=== PATIENT | male | born 1975 | race Two or more races ===

== ENCOUNTER 2022-06-10 01:18 | Inpatient (IN) | payer OTHER ==
[~2022-06-10] VITALS: Ht 177.8 cm; Wt 121.3 kg
[2022-06-10] MEDS ORDERED: FAMOTIDINE (10MG/ML) 2ML VL IV ONE (02:15)
[2022-06-10] MEDS ORDERED: DexAMETHasone SOD PHOS 10MG/1ML VIAL INJ IV ONE (02:15)
[2022-06-10 03:00] LABS: Basophils # (auto) 0 10 ^3/uL (0-0.2); Basophils % (auto) 0.3 % (0.0-2.0); Eosinophils # (auto) 0 10 ^3/uL (0-0.8); Hematocrit 47.2 % (41.0-53.0); Hemoglobin 15.9 g/dL (13.5-17.5); Lymphocytes # (auto) 0.3 10 ^3/uL (0.4-5.4); Lymphocytes % (auto) 2.3 % (10.0-50.0); Mean Corpuscular Hemoglobin 30.8 pg (28.0-32.0); Mean Corpuscular Hgb Conc. 33.6 g/dL (32.0-36.0); Mean Corpuscular Volume 91.6 fL (80.0-100.0); Monocytes # (auto) 0.7 10 ^3/uL (0-1.3); Monocytes % (auto) 4.8 % (0.0-12.0); Neutrophils # (auto) 13.6 10 ^3/uL (1.6-8.6); Neutrophils % (auto) 92.6 % (37.0-80.0); Red Blood Cells 5.15 10^6/uL (4.5-5.90); Red Cell Distribution Width 12.9 % (11.8-14.3); White Blood Cell 14.6 10^3/uL (4.4-10.8)
[2022-06-10] MEDS ORDERED: ONDANSETRON HCL 4 MG/2 ML VIAL IV ONE (03:00)
[2022-06-10] MEDS ORDERED: cefTRIAXone 1GM/50ML D5W 50 ML IV ONE (03:00)
[2022-06-10] MEDS ORDERED: SODIUM CHLORIDE 0.9% 4,100 ML IV ONE (03:00)
[2022-06-10 03:18] LABS: Albumin 3.3 g/dL (3.4-5.0); BUN/Creatinine Ratio 8.9; Calcium 8.8 mg/dL (8.5-10.1); Potassium 4.3 mmol/L (3.5-5.1)
[2022-06-10 03:21] LABS: Bilirubin, Total 1.8 mg/dL (0.2-1.0); Total Protein 6.6 g/dL (6.4-8.2)
[2022-06-10] MEDS ORDERED: SODIUM CHLORIDE 0.9% 1,000 ML IV ONE ×2 (04:00→17:45)
[2022-06-10] MEDS ORDERED: InsuLIN REG 1unit/0.01ml Soln (100units/ml) IV ONE ×3 (04:00→17:45)
[2022-06-10] MEDS ORDERED: KETOROLAC TROMETH 30 MG/ML 1ML VIAL IV ONE (05:45)
[2022-06-10 08:29] LABS: BUN/Creatinine Ratio 11.2; Potassium 3.8 mmol/L (3.5-5.1)
[2022-06-10] MEDS ORDERED: VANCOMYCIN PER PHARMACY 0 MG IV SCH (09:30)
[2022-06-10] MEDS ORDERED: ONDANSETRON HCL 4 MG/2 ML VIAL IV PRN (09:30)
[2022-06-10] MEDS ORDERED: DEXTROSE (50%) 50ML SYRG IV PRN (09:30)
[2022-06-10] MEDS ORDERED: DOCUSATE SOD 100 MG CAP PO PRN (09:30)
[2022-06-10] MEDS ORDERED: LACTATED RINGER'S 1,000 ML IV ONE ×2 (09:45)
[2022-06-10] MEDS: metroNIDAZOLE 500MG/100ML 100 ML IV SCH ×2 (10:25→17:58)
[2022-06-10] MEDS: PANTOPRAZOLE 40 MG TAB PO SCH (10:26)
[2022-06-10] MEDS: HEPARIN SODIUM (PORCINE) 5000 UNITS/ML 1ML VIAL SC SCH ×2 (10:26→18:50)
[2022-06-10] MEDS: HYDROmorphone HCL 2 MG/ML VL/or syr IV PRN (10:28)
[2022-06-10] MEDS: CLOTRIMAZOLE 1 % CREAM 15GM TOP SCH ×2 (10:28→22:00)
[2022-06-10] MEDS ORDERED: VANCOMYCIN 1GM/250ML 250 ML IV ONE (10:30)
[2022-06-10 10:46] LABS: Lactic Acid w/Reflex 2.2 mmol/L (0.4-2.0)
[2022-06-10 11:17] LABS: Creatinine, Urine 120 mg/dL (30.0-125.0); Sodium Urine 8 mmol/L (40-220)
[2022-06-10] MEDS: ACCU-CHEK COMFORT CURVE STRIP VI SCH ×3 (11:30→22:00)
[2022-06-10] MEDS: InsuLIN REG 1unit/0.01ml Soln (100units/ml) SC SCH ×3 (11:30→21:44)
[2022-06-10 12:03] LABS: Bilirubin, Direct 0.5 mg/dL (0-0.2); Bilirubin, Total 1.2 mg/dL (0.2-1.0)
[2022-06-10 12:39] LABS: Urine Bacteria MOD /hpf (None Seen); Urine Blood Negative /uL (Negative); Urine Hyaline Cast FEW /lpf (0 - 2); Urine Mucus FEW (None Seen); Urine Specific Gravity 1.032 (1.001-1.035); Urine WBC 7 /hpf (0 - 3)
[2022-06-10] MEDS: CEFEPIME 2 GM in SODIUM CHL 0.9% 50 ML IV SCH ×2 (14:59→21:41)
[2022-06-10] MEDS: HYDROcodone-ACET 5/325MG TAB PO PRN ×2 (16:21→21:40)
[2022-06-10] MEDS ORDERED: HEPARIN SODIUM (PORCINE) 5000 UNITS/ML 1ML VIAL ONE (18:47)
[2022-06-10] MEDS ORDERED: FELO5TAB6 GT (19:38)
[2022-06-10] MEDS ORDERED: OLME20TA53 PO (19:38)
[2022-06-10] MEDS: SODIUM CHLORIDE 0.9% 1,000 ML IV SCH (20:48)
[2022-06-10 21:29] VITALS: BP 135/80
[2022-06-11] MEDS: VANCOMYCIN 1GM/250ML 250 ML IV SCH ×2 (01:24→17:02)
[2022-06-11] MEDS: HEPARIN SODIUM (PORCINE) 5000 UNITS/ML 1ML VIAL SC SCH ×3 (01:25→18:35)
[2022-06-11] MEDS: HYDROcodone-ACET 5/325MG TAB PO PRN ×2 (02:42→06:33)
[2022-06-11] MEDS: metroNIDAZOLE 500MG/100ML 100 ML IV SCH ×3 (02:42→18:20)
[2022-06-11 04:35] VITALS: BP 118/77
[2022-06-11] MEDS: SODIUM CHLORIDE 0.9% 1,000 ML IV SCH (06:19)
[2022-06-11] MEDS: InsuLIN REG 1unit/0.01ml Soln (100units/ml) SC SCH ×4 (06:22→21:44)
[2022-06-11] MEDS: ACCU-CHEK COMFORT CURVE STRIP VI SCH ×4 (06:25→21:45)
[2022-06-11 09:05] VITALS: BP 156/83
[2022-06-11] MEDS: PANTOPRAZOLE 40 MG TAB PO SCH (09:15)
[2022-06-11] MEDS: CEFEPIME 2 GM in SODIUM CHL 0.9% 50 ML IV SCH ×2 (09:16→21:40)
[2022-06-11] MEDS: CLOTRIMAZOLE 1 % CREAM 15GM TOP SCH ×2 (10:00→21:40)
[2022-06-11] MEDS: HYDROmorphone HCL 2 MG/ML VL/or syr IV PRN ×2 (11:13→16:00)
[2022-06-11 13:00] VITALS: BP 129/78
[2022-06-11 16:10] LABS: Anion Gap 12 (5-15); BUN/Creatinine Ratio 21.3; Blood Urea Nitrogen 23 mg/dL (7-18); Calcium 7.9 mg/dL (8.5-10.1); Carbon Dioxide 20 mmol/L (21-32); Chloride 103 mmol/L (98-107); GFR African American 96 mL/min; GFR Non-African American 79 mL/min; Glucose 249 mg/dL (74-106); Sodium 135 mmol/L (136-145)
[2022-06-11] MEDS ORDERED: IBUPROFEN 800 MG TAB PO ONE (16:30)
[2022-06-11 16:37] VITALS: BP 158/87
[2022-06-11] MEDS: INSULIN LANTUS (GLARGINE) 1 /0.01ml (100units/ml) SC SCH (21:45)
[2022-06-11 22:00] VITALS: BP 136/58
[2022-06-12] MEDS: metroNIDAZOLE 500MG/100ML 100 ML IV SCH ×3 (01:44→17:51)
[2022-06-12] MEDS: HEPARIN SODIUM (PORCINE) 5000 UNITS/ML 1ML VIAL SC SCH ×3 (01:45→17:52)
[2022-06-12] MEDS: HYDROcodone-ACET 10/325MG TAB PO PRN ×4 (02:05→19:49)
[2022-06-12 05:14] VITALS: BP 141/72
[2022-06-12] MEDS: InsuLIN REG 1unit/0.01ml Soln (100units/ml) SC SCH ×4 (06:16→21:31)
[2022-06-12] MEDS: ACCU-CHEK COMFORT CURVE STRIP VI SCH ×4 (06:16→21:31)
[2022-06-12 07:34] LABS: Hematocrit 38.1 % (41.0-53.0); Hemoglobin 12.8 g/dL (13.5-17.5); Mean Corpuscular Hemoglobin 30.5 pg (28.0-32.0); Mean Corpuscular Hgb Conc. 33.5 g/dL (32.0-36.0); Red Blood Cells 4.19 10^6/uL (4.5-5.90); Red Cell Distribution Width 12.7 % (11.8-14.3)
[2022-06-12 07:49] LABS: BUN/Creatinine Ratio 19.1; Calcium 8.1 mg/dL (8.5-10.1); Magnesium 2.3 mg/dL (1.6-2.6); Potassium 3.8 mmol/L (3.5-5.1)
[2022-06-12 08:23] LABS: Basophils % (manual) 0 (0.0-2.0); Blast Cells 0; Metamyelocytes % 0; Myelocytes % 0; Promyelocytes % 0; Reactive Lymphocytes 0
[2022-06-12 08:44] LABS: Band Neutrophils % (manual) 2; Eosinophils % (manual) 1 (0-7); Lymphocytes % (manual) 15 (10.0-50.0); Monocytes % (manual) 1 (0-12)
[2022-06-12 09:14] VITALS: BP 145/83
[2022-06-12] MEDS: PANTOPRAZOLE 40 MG TAB PO SCH (09:35)
[2022-06-12] MEDS: amLODIPine BESYLATE 5 MG TAB PO SCH (09:35)
[2022-06-12] MEDS: LOSARTAN POTASSIUM 50 MG TAB PO SCH (09:36)
[2022-06-12] MEDS ORDERED: FELODIPINE 5 MG PO SCH (10:00)
[2022-06-12] MEDS: CEFEPIME 2 GM in SODIUM CHL 0.9% 50 ML IV SCH ×2 (12:00→20:58)
[2022-06-12] MEDS: VANCOMYCIN 1GM/250ML 250 ML IV SCH ×2 (12:38→19:50)
[2022-06-12 12:39] VITALS: BP 143/84
[2022-06-12] MEDS: CLOTRIMAZOLE 1 % CREAM 15GM TOP SCH ×2 (12:48→21:30)
[2022-06-12 16:49] VITALS: BP 142/83
[2022-06-12] MEDS: HYDROmorphone HCL 2 MG/ML VL/or syr IV PRN ×2 (17:22→23:03)
[2022-06-12] MEDS: SENNA 8.6 MG TAB PO PRN (19:49)
[2022-06-12] MEDS: INSULIN LANTUS (GLARGINE) 1 /0.01ml (100units/ml) SC SCH (21:30)
[2022-06-12 22:00] VITALS: BP 161/80
[2022-06-13] MEDS: metroNIDAZOLE 500MG/100ML 100 ML IV SCH ×2 (01:17→09:15)
[2022-06-13] MEDS: HYDROcodone-ACET 10/325MG TAB PO PRN ×3 (01:18→22:31)
[2022-06-13] MEDS: HEPARIN SODIUM (PORCINE) 5000 UNITS/ML 1ML VIAL SC SCH ×3 (01:19→17:54)
[2022-06-13] MEDS: VANCOMYCIN 1GM/250ML 250 ML IV SCH ×3 (02:55→18:54)
[2022-06-13] MEDS: CEFEPIME 2 GM in SODIUM CHL 0.9% 50 ML IV SCH ×2 (04:12→12:58)
[2022-06-13] MEDS: HYDROmorphone HCL 2 MG/ML VL/or syr IV PRN ×3 (04:21→20:17)
[2022-06-13 05:00] VITALS: BP 151/76
[2022-06-13] MEDS: ACCU-CHEK COMFORT CURVE STRIP VI SCH ×4 (06:36→22:25)
[2022-06-13] MEDS: InsuLIN REG 1unit/0.01ml Soln (100units/ml) SC SCH ×4 (06:38→22:30)
[2022-06-13 08:37] VITALS: BP 135/82
[2022-06-13] MEDS: LOSARTAN POTASSIUM 50 MG TAB PO SCH (09:16)
[2022-06-13] MEDS: PANTOPRAZOLE 40 MG TAB PO SCH (09:16)
[2022-06-13] MEDS: amLODIPine BESYLATE 5 MG TAB PO SCH (09:17)
[2022-06-13] MEDS: CLOTRIMAZOLE 1 % CREAM 15GM TOP SCH ×2 (11:39→22:22)
[2022-06-13 13:00] VITALS: BP 135/85
[2022-06-13] MEDS ORDERED: IOHEXOL 300 MG/ML 100ML BOTTLE IJ ONE (16:23)
[2022-06-13 16:58] VITALS: BP 139/75
[2022-06-13] MEDS ORDERED: IOHEXOL 350 MG/ML 100ML IJ ONE (21:54)
[2022-06-13 22:00] VITALS: BP 153/90
[2022-06-13] MEDS: INSULIN LANTUS (GLARGINE) 1 /0.01ml (100units/ml) SC SCH (22:30)
[2022-06-14] MEDS: HEPARIN SODIUM (PORCINE) 5000 UNITS/ML 1ML VIAL SC SCH ×3 (01:27→17:03)
[2022-06-14] MEDS: VANCOMYCIN 1GM/250ML 250 ML IV SCH ×3 (02:29→19:18)
[2022-06-14] MEDS: HYDROcodone-ACET 10/325MG TAB PO PRN ×2 (02:41→14:49)
[2022-06-14 05:00] VITALS: BP 138/73
[2022-06-14] MEDS: ACCU-CHEK COMFORT CURVE STRIP VI SCH ×4 (06:28→22:06)
[2022-06-14] MEDS: HYDROmorphone HCL 2 MG/ML VL/or syr IV PRN ×3 (06:29→19:30)
[2022-06-14] MEDS: InsuLIN REG 1unit/0.01ml Soln (100units/ml) SC SCH ×4 (06:30→22:08)
[2022-06-14 09:00] VITALS: BP 145/79
[2022-06-14] MEDS: PANTOPRAZOLE 40 MG TAB PO SCH (09:28)
[2022-06-14] MEDS: LOSARTAN POTASSIUM 50 MG TAB PO SCH (09:29)
[2022-06-14] MEDS: amLODIPine BESYLATE 5 MG TAB PO SCH (09:29)
[2022-06-14] MEDS: CLOTRIMAZOLE 1 % CREAM 15GM TOP SCH ×2 (09:33→22:06)
[2022-06-14 13:00] VITALS: BP 137/73
[2022-06-14 16:36] VITALS: BP 146/87
[2022-06-14] MEDS: DOCUSATE SOD 100 MG CAP PO PRN (19:31)
[2022-06-14] MEDS: SENNA 8.6 MG TAB PO PRN (19:31)
[2022-06-14 22:05] VITALS: BP 142/74
[2022-06-14] MEDS: INSULIN LANTUS (GLARGINE) 1 /0.01ml (100units/ml) SC SCH (22:09)
[2022-06-15] MEDS: HEPARIN SODIUM (PORCINE) 5000 UNITS/ML 1ML VIAL SC SCH ×3 (00:31→17:36)
[2022-06-15] MEDS: HYDROmorphone HCL 2 MG/ML VL/or syr IV PRN ×5 (00:42→22:36)
[2022-06-15] MEDS: VANCOMYCIN 1GM/250ML 250 ML IV SCH ×3 (03:14→18:19)
[2022-06-15 05:02] VITALS: BP 145/81
[2022-06-15 05:58] LABS: Hematocrit 39.2 % (41.0-53.0); Red Blood Cells 4.31 10^6/uL (4.5-5.90); White Blood Cell 15.4 10^3/uL (4.4-10.8)
[2022-06-15 05:59] LABS: Mean Corpuscular Hemoglobin 30.1 pg (28.0-32.0); Mean Corpuscular Volume 91.1 fL (80.0-100.0); Red Cell Distribution Width 13.1 % (11.8-14.3)
[2022-06-15 06:06] LABS: BUN/Creatinine Ratio 15.9; Calcium 8.1 mg/dL (8.5-10.1); Magnesium 2.4 mg/dL (1.6-2.6); Potassium 3.5 mmol/L (3.5-5.1)
[2022-06-15] MEDS: ACCU-CHEK COMFORT CURVE STRIP VI SCH ×4 (06:22→21:36)
[2022-06-15] MEDS: InsuLIN REG 1unit/0.01ml Soln (100units/ml) SC SCH ×4 (06:30→21:37)
[2022-06-15 08:58] LABS: Basophils % (auto) 0.3 % (0.0-2.0); Eosinophils % (auto) 0.8 % (0.0-7.0); Lymphocytes % (auto) 12.3 % (10.0-50.0); Neutrophils % (auto) 81.6 % (37.0-80.0)
[2022-06-15 08:59] LABS: Basophils # (auto) 0.1 10 ^3/uL (0-0.2); Eosinophils # (auto) 0.1 10 ^3/uL (0-0.8); Lymphocytes # (auto) 1.9 10 ^3/uL (0.4-5.4); Monocytes # (auto) 0.8 10 ^3/uL (0-1.3); Neutrophils # (auto) 12.5 10 ^3/uL (1.6-8.6)
[2022-06-15 09:11] VITALS: BP 139/83
[2022-06-15] MEDS: LOSARTAN POTASSIUM 50 MG TAB PO SCH (09:15)
[2022-06-15] MEDS: PANTOPRAZOLE 40 MG TAB PO SCH (09:16)
[2022-06-15] MEDS: amLODIPine BESYLATE 5 MG TAB PO SCH (09:16)
[2022-06-15] MEDS: DOCUSATE SOD 100 MG CAP PO PRN (09:16)
[2022-06-15] MEDS: CLOTRIMAZOLE 1 % CREAM 15GM TOP SCH ×2 (09:16→21:36)
[2022-06-15 13:29] VITALS: BP 146/76
[2022-06-15 16:26] VITALS: BP 137/92
[2022-06-15] MEDS: HYDROcodone-ACET 10/325MG TAB PO PRN (20:10)
[2022-06-15] MEDS: INSULIN LANTUS (GLARGINE) 1 /0.01ml (100units/ml) SC SCH (21:37)
[2022-06-15 22:22] VITALS: BP 153/78
[2022-06-16] MEDS: HYDROcodone-ACET 10/325MG TAB PO PRN ×2 (01:03→20:10)
[2022-06-16] MEDS: HEPARIN SODIUM (PORCINE) 5000 UNITS/ML 1ML VIAL SC SCH ×3 (01:07→17:44)
[2022-06-16] MEDS: VANCOMYCIN 1GM/250ML 250 ML IV SCH ×3 (01:41→17:45)
[2022-06-16] MEDS: HYDROmorphone HCL 2 MG/ML VL/or syr IV PRN ×3 (04:07→15:09)
[2022-06-16 05:06] VITALS: BP 142/81
[2022-06-16] MEDS: ACCU-CHEK COMFORT CURVE STRIP VI SCH ×4 (06:37→22:03)
[2022-06-16] MEDS: InsuLIN REG 1unit/0.01ml Soln (100units/ml) SC SCH ×4 (06:38→22:04)
[2022-06-16] MEDS ORDERED: IOHEXOL 300 MG/ML 100ML BOTTLE IJ ONE (08:06)
[2022-06-16 09:00] VITALS: BP 136/75
[2022-06-16] MEDS: amLODIPine BESYLATE 5 MG TAB PO SCH (09:25)
[2022-06-16] MEDS: CLOTRIMAZOLE 1 % CREAM 15GM TOP SCH ×2 (09:25→22:13)
[2022-06-16] MEDS: PANTOPRAZOLE 40 MG TAB PO SCH (09:25)
[2022-06-16] MEDS: DOCUSATE SOD 100 MG CAP PO PRN (09:38)
[2022-06-16] MEDS: LOSARTAN POTASSIUM 50 MG TAB PO SCH (11:04)
[2022-06-16 13:00] VITALS: BP 156/89
[2022-06-16 16:34] VITALS: BP 155/80
[2022-06-16 22:00] VITALS: BP 149/81
[2022-06-16] MEDS: INSULIN LANTUS (GLARGINE) 1 /0.01ml (100units/ml) SC SCH (22:04)
[2022-06-17] MEDS: HYDROcodone-ACET 10/325MG TAB PO PRN ×4 (01:37→23:54)
[2022-06-17] MEDS: HEPARIN SODIUM (PORCINE) 5000 UNITS/ML 1ML VIAL SC SCH ×3 (01:59→17:30)
[2022-06-17] MEDS: VANCOMYCIN 1GM/250ML 250 ML IV SCH ×3 (02:00→21:12)
[2022-06-17 05:00] VITALS: BP 158/92
[2022-06-17 05:05] LABS: Basophils # (auto) 0.1 10 ^3/uL (0-0.2); Eosinophils # (auto) 0.1 10 ^3/uL (0-0.8); Neutrophils # (auto) 12.9 10 ^3/uL (1.6-8.6)
[2022-06-17 05:07] LABS: Basophils % (auto) 0.3 % (0.0-2.0); Eosinophils % (auto) 0.5 % (0.0-7.0); Hemoglobin 13.5 g/dL (13.5-17.5); Lymphocytes # (auto) 2.2 10 ^3/uL (0.4-5.4); Lymphocytes % (auto) 13.8 % (10.0-50.0); Mean Corpuscular Hemoglobin 29.9 pg (28.0-32.0); Mean Corpuscular Volume 90.8 fL (80.0-100.0); Monocytes # (auto) 0.8 10 ^3/uL (0-1.3); Monocytes % (auto) 5.1 % (0.0-12.0); Neutrophils % (auto) 80.3 % (37.0-80.0); Red Blood Cells 4.52 10^6/uL (4.5-5.90); White Blood Cell 16.1 10^3/uL (4.4-10.8)
[2022-06-17] MEDS: ACCU-CHEK COMFORT CURVE STRIP VI SCH ×4 (06:48→22:26)
[2022-06-17] MEDS: InsuLIN REG 1unit/0.01ml Soln (100units/ml) SC SCH ×4 (06:49→22:28)
[2022-06-17 08:58] VITALS: BP 147/80
[2022-06-17] MEDS: LOSARTAN POTASSIUM 50 MG TAB PO SCH (09:28)
[2022-06-17] MEDS: amLODIPine BESYLATE 5 MG TAB PO SCH (09:29)
[2022-06-17] MEDS: PANTOPRAZOLE 40 MG TAB PO SCH (09:29)
[2022-06-17] MEDS: CLOTRIMAZOLE 1 % CREAM 15GM TOP SCH ×2 (10:00→22:26)
[2022-06-17] MEDS ORDERED: LACTULOSE 20Gm/30ML SOLN PO PRN (11:00)
[2022-06-17] MEDS ORDERED: INSULIN LANTUS (GLARGINE) 1 /0.01ml (100units/ml) SC SCH (11:00)
[2022-06-17 13:00] VITALS: BP 150/90
[2022-06-17] MEDS: AMPICILLIN & SULBACTAM SODIUM 3 GM in SODIUM CHL 0.9% 100 ML IV SCH ×3 (14:17→22:28)
[2022-06-17 22:00] VITALS: BP 147/79
[2022-06-17] MEDS: INSULIN LANTUS (GLARGINE) 1 /0.01ml (100units/ml) SC SCH (22:27)
[2022-06-18] MEDS: HEPARIN SODIUM (PORCINE) 5000 UNITS/ML 1ML VIAL SC SCH ×3 (01:21→17:46)
[2022-06-18] MEDS: AMPICILLIN & SULBACTAM SODIUM 3 GM in SODIUM CHL 0.9% 100 ML IV SCH ×4 (04:05→22:50)
[2022-06-18 05:00] VITALS: BP 149/82
[2022-06-18] MEDS: VANCOMYCIN 1GM/250ML 250 ML IV SCH ×3 (05:12→21:07)
[2022-06-18 06:10] LABS: Eosinophils # (auto) 0.1 10 ^3/uL (0-0.8); Eosinophils % (auto) 0.5 % (0.0-7.0); Hemoglobin 13.5 g/dL (13.5-17.5)
[2022-06-18 06:12] LABS: Basophils # (auto) 0.2 10 ^3/uL (0-0.2); Hematocrit 40.2 % (41.0-53.0); Lymphocytes % (auto) 12.1 % (10.0-50.0); Mean Corpuscular Hemoglobin 31.1 pg (28.0-32.0); Mean Corpuscular Hgb Conc. 33.7 g/dL (32.0-36.0); Mean Corpuscular Volume 92.1 fL (80.0-100.0); Monocytes # (auto) 0.9 10 ^3/uL (0-1.3); Monocytes % (auto) 5.7 % (0.0-12.0); Neutrophils # (auto) 13.3 10 ^3/uL (1.6-8.6); Neutrophils % (auto) 80.7 % (37.0-80.0); Red Blood Cells 4.36 10^6/uL (4.5-5.90); Red Cell Distribution Width 12.9 % (11.8-14.3); White Blood Cell 16.5 10^3/uL (4.4-10.8)
[2022-06-18 06:24] LABS: Calcium 8.6 mg/dL (8.5-10.1)
[2022-06-18 06:26] LABS: BUN/Creatinine Ratio 9.2
[2022-06-18] MEDS: ACCU-CHEK COMFORT CURVE STRIP VI SCH ×3 (06:45→21:48)
[2022-06-18] MEDS: InsuLIN REG 1unit/0.01ml Soln (100units/ml) SC SCH ×3 (06:48→21:50)
[2022-06-18] MEDS: HYDROcodone-ACET 10/325MG TAB PO PRN ×2 (06:58→11:36)
[2022-06-18 09:19] VITALS: BP 154/92
[2022-06-18] MEDS: amLODIPine BESYLATE 5 MG TAB PO SCH (10:01)
[2022-06-18] MEDS: LOSARTAN POTASSIUM 50 MG TAB PO SCH (10:08)
[2022-06-18] MEDS: CLOTRIMAZOLE 1 % CREAM 15GM TOP SCH ×2 (10:09→21:47)
[2022-06-18] MEDS: PANTOPRAZOLE 40 MG TAB PO SCH (10:13)
[2022-06-18] MEDS ORDERED: DEXTROSE (50%) 50ML SYRG IV PRN (11:45)
[2022-06-18] MEDS ORDERED: InsuLIN REG 1unit/0.01ml Soln (100units/ml) SC ONE (12:00)
[2022-06-18 13:07] VITALS: BP 149/81
[2022-06-18 16:49] VITALS: BP 139/78
[2022-06-18] MEDS: HYDROmorphone HCL 2 MG/ML VL/or syr IV PRN (20:22)
[2022-06-18] MEDS: INSULIN LANTUS (GLARGINE) 1 /0.01ml (100units/ml) SC SCH (21:50)
[2022-06-18 22:00] VITALS: BP 140/71
[2022-06-19] MEDS: HYDROcodone-ACET 10/325MG TAB PO PRN ×3 (00:22→21:30)
[2022-06-19] MEDS: HEPARIN SODIUM (PORCINE) 5000 UNITS/ML 1ML VIAL SC SCH ×3 (01:39→17:49)
[2022-06-19] MEDS: AMPICILLIN & SULBACTAM SODIUM 3 GM in SODIUM CHL 0.9% 100 ML IV SCH ×4 (04:12→22:28)
[2022-06-19 05:00] VITALS: BP 136/77
[2022-06-19] MEDS: HYDROmorphone HCL 2 MG/ML VL/or syr IV PRN ×4 (05:02→23:49)
[2022-06-19] MEDS ORDERED: VANCOMYCIN 1GM/250ML 250 ML IV SCH (06:00)
[2022-06-19] MEDS: ACCU-CHEK COMFORT CURVE STRIP VI SCH ×4 (06:39→21:33)
[2022-06-19] MEDS: InsuLIN REG 1unit/0.01ml Soln (100units/ml) SC SCH ×4 (06:40→21:34)
[2022-06-19 07:50] VITALS: BP 145/85
[2022-06-19 09:00] VITALS: BP 145/85
[2022-06-19 09:23] LABS: Basophils # (auto) 0.1 10 ^3/uL (0-0.2); Basophils % (auto) 0.6 % (0.0-2.0); Eosinophils # (auto) 0.1 10 ^3/uL (0-0.8); Eosinophils % (auto) 0.4 % (0.0-7.0); Hematocrit 39.7 % (41.0-53.0); Hemoglobin 12.9 g/dL (13.5-17.5); Lymphocytes # (auto) 1.7 10 ^3/uL (0.4-5.4); Lymphocytes % (auto) 11.6 % (10.0-50.0); Mean Corpuscular Hemoglobin 29.9 pg (28.0-32.0); Mean Corpuscular Hgb Conc. 32.6 g/dL (32.0-36.0); Mean Corpuscular Volume 91.6 fL (80.0-100.0); Neutrophils # (auto) 11.8 10 ^3/uL (1.6-8.6); Neutrophils % (auto) 80.4 % (37.0-80.0); Red Blood Cells 4.33 10^6/uL (4.5-5.90); White Blood Cell 14.7 10^3/uL (4.4-10.8)
[2022-06-19 09:24] LABS: Albumin 2.7 g/dL (3.4-5.0); Calcium 8.6 mg/dL (8.5-10.1); Potassium 4.1 mmol/L (3.5-5.1)
[2022-06-19 09:27] LABS: BUN/Creatinine Ratio 10.9; Bilirubin, Total 0.7 mg/dL (0.2-1.0); Total Protein 7.4 g/dL (6.4-8.2)
[2022-06-19] MEDS: amLODIPine BESYLATE 5 MG TAB PO SCH (10:15)
[2022-06-19] MEDS: LOSARTAN POTASSIUM 50 MG TAB PO SCH (10:16)
[2022-06-19] MEDS: PANTOPRAZOLE 40 MG TAB PO SCH (10:16)
[2022-06-19] MEDS: CLOTRIMAZOLE 1 % CREAM 15GM TOP SCH ×2 (10:17→21:29)
[2022-06-19 13:00] VITALS: BP 132/80
[2022-06-19] MEDS: VANCOMYCIN 1GM/250ML 250 ML IV SCH (16:11)
[2022-06-19 17:00] VITALS: BP 136/77
[2022-06-19 20:00] VITALS: BP 138/82
[2022-06-19] MEDS: INSULIN LANTUS (GLARGINE) 1 /0.01ml (100units/ml) SC SCH (21:32)
[2022-06-20] MEDS: VANCOMYCIN 1GM/250ML 250 ML IV SCH ×4 (00:11→23:07)
[2022-06-20] MEDS: HEPARIN SODIUM (PORCINE) 5000 UNITS/ML 1ML VIAL SC SCH ×2 (04:06→09:15)
[2022-06-20] MEDS: AMPICILLIN & SULBACTAM SODIUM 3 GM in SODIUM CHL 0.9% 100 ML IV SCH ×4 (04:20→21:36)
[2022-06-20] MEDS: HYDROcodone-ACET 10/325MG TAB PO PRN ×2 (04:32→23:06)
[2022-06-20 05:00] VITALS: BP 141/76
[2022-06-20] MEDS: ACCU-CHEK COMFORT CURVE STRIP VI SCH ×4 (06:29→21:36)
[2022-06-20] MEDS: InsuLIN REG 1unit/0.01ml Soln (100units/ml) SC SCH ×4 (06:30→21:36)
[2022-06-20 06:59] LABS: Basophils # (auto) 0.1 10 ^3/uL (0-0.2); Basophils % (auto) 0.5 % (0.0-2.0); Eosinophils # (auto) 0.1 10 ^3/uL (0-0.8); Lymphocytes # (auto) 1.6 10 ^3/uL (0.4-5.4); Lymphocytes % (auto) 9.5 % (10.0-50.0); Neutrophils # (auto) 13.9 10 ^3/uL (1.6-8.6)
[2022-06-20 07:02] LABS: Eosinophils % (auto) 0.5 % (0.0-7.0); Hemoglobin 13.6 g/dL (13.5-17.5); Mean Corpuscular Hemoglobin 31.7 pg (28.0-32.0); Mean Corpuscular Hgb Conc. 34.8 g/dL (32.0-36.0); Mean Corpuscular Volume 91.1 fL (80.0-100.0); Monocytes # (auto) 1.1 10 ^3/uL (0-1.3); Monocytes % (auto) 6.4 % (0.0-12.0); Neutrophils % (auto) 83.1 % (37.0-80.0); Red Blood Cells 4.28 10^6/uL (4.5-5.90); Red Cell Distribution Width 13.1 % (11.8-14.3); White Blood Cell 16.7 10^3/uL (4.4-10.8)
[2022-06-20 07:13] LABS: BUN/Creatinine Ratio 11.2; Calcium 8.9 mg/dL (8.5-10.1); Potassium 4.1 mmol/L (3.5-5.1)
[2022-06-20 08:00] VITALS: BP 137/69
[2022-06-20 09:00] VITALS: BP 137/69
[2022-06-20] MEDS: LOSARTAN POTASSIUM 50 MG TAB PO SCH (10:34)
[2022-06-20] MEDS: amLODIPine BESYLATE 5 MG TAB PO SCH (10:34)
[2022-06-20] MEDS: PANTOPRAZOLE 40 MG TAB PO SCH (10:34)
[2022-06-20] MEDS: CLOTRIMAZOLE 1 % CREAM 15GM TOP SCH ×2 (10:34→21:37)
[2022-06-20 13:00] VITALS: BP 136/79
[2022-06-20 17:00] VITALS: BP 150/84
[2022-06-20 18:53] LABS: INR 1.02 (0.9-1.15); Partial Thromboplastin Time 32.2 sec (24.6-33.4)
[2022-06-20] MEDS: INSULIN LANTUS (GLARGINE) 1 /0.01ml (100units/ml) SC SCH (21:36)
[2022-06-20 22:00] VITALS: BP 122/68
[2022-06-21] MEDS: AMPICILLIN & SULBACTAM SODIUM 3 GM in SODIUM CHL 0.9% 100 ML IV SCH ×4 (04:19→22:11)
[2022-06-21 05:00] VITALS: BP 144/88
[2022-06-21] MEDS: InsuLIN REG 1unit/0.01ml Soln (100units/ml) SC SCH ×4 (06:30→22:12)
[2022-06-21] MEDS: ACCU-CHEK COMFORT CURVE STRIP VI SCH ×4 (06:41→22:11)
[2022-06-21] MEDS: glipiZIDE 5 MG TAB PO SCH (06:42)
[2022-06-21 06:50] LABS: BUN/Creatinine Ratio 12.6; Calcium 9.1 mg/dL (8.5-10.1); Phosphorus 4.1 mg/dL (2.5-4.90); Potassium 4.2 mmol/L (3.5-5.1)
[2022-06-21 08:00] VITALS: BP 135/80
[2022-06-21] MEDS: VANCOMYCIN 1GM/250ML 250 ML IV SCH ×3 (08:55→23:24)
[2022-06-21] MEDS: amLODIPine BESYLATE 5 MG TAB PO SCH (08:56)
[2022-06-21] MEDS: ACETAMINOPHEN 325 MG TAB PO PRN (09:07)
[2022-06-21] MEDS: PANTOPRAZOLE 40 MG TAB PO SCH (10:00)
[2022-06-21] MEDS: CLOTRIMAZOLE 1 % CREAM 15GM TOP SCH ×2 (10:00→22:11)
[2022-06-21] MEDS: LOSARTAN POTASSIUM 50 MG TAB PO SCH (10:00)
[2022-06-21 12:00] VITALS: BP 135/82
[2022-06-21] MEDS ORDERED: LIDOCAINE 1% (LOCAL ANESTH.) PF 5ml SDV ONE (12:57)
[2022-06-21] MEDS ORDERED: EPINEPHrine HCL 1 MG/1 ML AMP ONE (12:57)
[2022-06-21] MEDS ORDERED: PROPOFOL 10 MG/ML 20 ML IV ONE (12:58)
[2022-06-21] MEDS ORDERED: KETAMINE HCL 10 ML ONE (12:58)
[2022-06-21] MEDS ORDERED: ONDANSETRON HCL 4 MG/2 ML VIAL ONE (12:58)
[2022-06-21] MEDS ORDERED: fentaNYL CITRATE 100 MCG/2 ML VL ONE (12:58)
[2022-06-21] MEDS ORDERED: DexAMETHasone SOD PHOS 10MG/1ML VIAL INJ ONE (12:58)
[2022-06-21] MEDS ORDERED: MIDAZOLAM HCL 2MG/2ML 2ml VIAL (1mg/ml) ONE (12:58)
[2022-06-21] MEDS ORDERED: fentaNYL CITRATE 100 MCG/2 ML VL IV PRN (13:00)
[2022-06-21] MEDS ORDERED: HYDROmorphone HCL 2 MG/ML VL/or syr IV PRN (13:00)
[2022-06-21] MEDS ORDERED: ACCU-CHEK COMFORT CURVE STRIP VI ONE (13:00)
[2022-06-21] MEDS ORDERED: METOCLOPRAMIDE HCL 5MG/ml INJ 2ml VIAL IV PRN (13:00)
[2022-06-21] MEDS ORDERED: MORPHINE SULFATE 4 MG/ML SYR/VIAL IV PRN (13:00)
[2022-06-21 17:00] VITALS: BP 134/75
[2022-06-21] MEDS: INSULIN LANTUS (GLARGINE) 1 /0.01ml (100units/ml) SC SCH (21:55)
[2022-06-21 22:00] VITALS: BP 138/75
[2022-06-21] MEDS: HYDROcodone-ACET 10/325MG TAB PO PRN (22:10)
[2022-06-22] MEDS: HYDROcodone-ACET 10/325MG TAB PO PRN ×3 (02:13→17:18)
[2022-06-22] MEDS: AMPICILLIN & SULBACTAM SODIUM 3 GM in SODIUM CHL 0.9% 100 ML IV SCH ×2 (04:29→13:51)
[2022-06-22 05:00] VITALS: BP 127/71
[2022-06-22 05:53] LABS: Basophils # (auto) 0.1 10 ^3/uL (0-0.2); Eosinophils # (auto) 0 10 ^3/uL (0-0.8)
[2022-06-22 05:59] LABS: Basophils % (auto) 0.5 % (0.0-2.0); Hematocrit 40.8 % (41.0-53.0); Hemoglobin 13.5 g/dL (13.5-17.5); Lymphocytes # (auto) 1.3 10 ^3/uL (0.4-5.4); Lymphocytes % (auto) 8.6 % (10.0-50.0); Mean Corpuscular Hemoglobin 30.7 pg (28.0-32.0); Mean Corpuscular Hgb Conc. 33.2 g/dL (32.0-36.0); Mean Corpuscular Volume 92.7 fL (80.0-100.0); Monocytes # (auto) 0.9 10 ^3/uL (0-1.3); Monocytes % (auto) 6.1 % (0.0-12.0); Neutrophils # (auto) 13.1 10 ^3/uL (1.6-8.6); Neutrophils % (auto) 84.8 % (37.0-80.0); White Blood Cell 15.5 10^3/uL (4.4-10.8)
[2022-06-22] MEDS: InsuLIN REG 1unit/0.01ml Soln (100units/ml) SC SCH ×2 (06:17→11:30)
[2022-06-22] MEDS: ACCU-CHEK COMFORT CURVE STRIP VI SCH ×2 (06:18→11:30)
[2022-06-22] MEDS: glipiZIDE 5 MG TAB PO SCH (06:18)
[2022-06-22 06:23] LABS: Potassium 4.4 mmol/L (3.5-5.1)
[2022-06-22 06:28] LABS: BUN/Creatinine Ratio 14.8; Calcium 9.3 mg/dL (8.5-10.1); Magnesium 2.9 mg/dL (1.6-2.6)
[2022-06-22 09:00] VITALS: BP 120/64
[2022-06-22] MEDS: VANCOMYCIN 1GM/250ML 250 ML IV SCH (09:07)
[2022-06-22] MEDS: amLODIPine BESYLATE 5 MG TAB PO SCH (09:10)
[2022-06-22] MEDS: PANTOPRAZOLE 40 MG TAB PO SCH (09:11)
[2022-06-22] MEDS: DOCUSATE SOD 100 MG CAP PO PRN (09:11)
[2022-06-22] MEDS: LOSARTAN POTASSIUM 50 MG TAB PO SCH (09:11)
[2022-06-22] MEDS: CLOTRIMAZOLE 1 % CREAM 15GM TOP SCH (10:00)
[2022-06-22] MEDS: ACETAMINOPHEN 325 MG TAB PO PRN (10:41)
[2022-06-22 12:59] VITALS: BP 143/72
[2022-06-22] MEDS ORDERED: INSU-567 XX (14:54)
[2022-06-22] MEDS ORDERED: INSLANTI SC (14:54)
[2022-06-22] MEDS ORDERED: GLIP5TAB12 PO (14:54)
[2022-06-22] MEDS ORDERED: BLOO1KIT60 XX (14:54)
[2022-06-22] MEDS ORDERED: LANC-347 XX (14:54)
[2022-06-22] MEDS ORDERED: DOXY-332 PO (14:56)
[2022-06-22] MEDS ORDERED: HYDR-4902 PO (15:06)
[2022-06-22 17:00] VITALS: BP 136/72
[2022-06-22 17:37] VITALS: BP 136/72
== END 2022-06-22 19:08 | disposition home or self-care (01) | DRG 872 ==
LOC: ER 01:18 → TELE 09:34 → TELE-WESTW 20:05
PROVIDERS: ADMIT Internal Medicine; ATTEND Internal Medicine
PROC: 05HB33Z Insertion of Infusion Device into Right Basilic Vein, Percutaneous Approach (ICD-10-PCS; 2022-06-13)
PROC: B54MZZA Ultrasonography of Right Upper Extremity Veins, Guidance (ICD-10-PCS; 2022-06-13)
PROC: 0J9C3ZZ Drainage of Pelvic Region Subcutaneous Tissue and Fascia, Percutaneous Approach (ICD-10-PCS; principal; 2022-06-21 13:09)
DX: A41.02 Sepsis due to Methicillin resistant Staphylococcus aureus (principal); E87.1 Hypo-osmolality and hyponatremia; L03.314 Cellulitis of groin; Z68.41 Body mass index [BMI] 40.0-44.9, adult; E11.65 Type 2 diabetes mellitus with hyperglycemia; I10 Essential (primary) hypertension; E66.01 Morbid (severe) obesity due to excess calories; K40.90 Unilateral inguinal hernia, without obstruction or gangrene, not specified as recurrent; Z20.822 Contact with and (suspected) exposure to COVID-19; D75.838 Other thrombocytosis; K59.00 Constipation, unspecified; Z79.4 Long term (current) use of insulin; Z80.8 Family history of malignant neoplasm of other organs or systems; R59.1 Generalized enlarged lymph nodes
CPT/HCPCS: 36415; 71045; 73701; 74176; 80048; 80053; 80069; 80202; 81001; 82010; 82247; 82248; 82565; 82570; 82962; 83036; 83605; 83735; 83880; 84300; 84443; 84484; 85007; 85025; 85027; 85379; 85610; 85652; 85730; 86141; 87040; 87070; 87075; 87077; 87086; 87186; 87205; 93005; 93970; 96365; 96375; G0378; J0171; J0696; J1100; J1815; J1885; J2250; J2405; J2704; J3490

== ENCOUNTER 2023-08-11 10:44 | Emergency (ER) | payer OTHER ==
[~2023-08-11] VITALS: Ht 177.8 cm; Wt 129.5 kg
[~2023-08-11 10:44] MED LIST: BLOO1KIT60 XX; DOXY-448 PO; FELO5TAB6 GT; GLIP5TAB12 PO; HYDR-4902 PO; INSLANTI SC; INSU-567 XX; LANC-347 XX; OLME20TA53 PO
[2023-08-11 11:39] VITALS: BP 159/92; PULSE 98; RESP 16; TEMP 98.4; O2SAT 98
[2023-08-11] MEDS ORDERED: AUG875T PO (11:39)
== END 2023-08-11 11:48 | disposition home or self-care (01) ==
LOC: ER 10:44
DX: S61.432A Puncture wound without foreign body of left hand, initial encounter (principal); S61.431A Puncture wound without foreign body of right hand, initial encounter; I10 Essential (primary) hypertension; Z79.1 Long term (current) use of non-steroidal anti-inflammatories (NSAID); Z79.4 Long term (current) use of insulin; Z79.899 Other long term (current) drug therapy; W54.0XXA Bitten by dog, initial encounter; Y93.89 Activity, other specified; Y92.89 Other specified places as the place of occurrence of the external cause; Y99.8 Other external cause status